=== PATIENT | male | born 1990 | race Two or more races ===

== ENCOUNTER 2017-02-22 20:13 | Emergency (ER) | payer MEDICAID ==
[~2017-02-22] VITALS: Ht 182.9 cm; Wt 97.5 kg
[~2017-02-22 20:13] MED LIST: PEPCID40 MG PO; RISPERDAL0.25 MG PO
[2017-02-22] MEDS ORDERED: LORazepam Inj 2mg/ml 1ml IM ONE (20:30)
[2017-02-22] MEDS ORDERED: Haloperidol 5mg/ml Inj IM ONE (20:30)
[2017-02-22] MEDS ORDERED: DiphenhydrAMINE 50mg/ml Inj IM ONE (20:30)
[2017-02-22 21:00] VITALS: BP 119/72
[2017-02-22 21:02] VITALS: BP 144/78
[2017-02-22] MEDS ORDERED: UNOBMED (21:13)
[2017-02-22 21:24] LABS: EOSINOPHILS % (AUTO) 0.6 % (0.0-3.0); LYMPHOCYTES % (AUTO) 14.2 % (20.0-45.0); MEAN CORPUSCULAR HEMOGLOBIN 31.3 PG (27.0-31.0); MEAN CORPUSCULAR HGB CONC 34.9 G/DL (32.0-36.0); MEAN CORPUSCULAR VOLUME 90 FL (80-99); MEAN PLATELET VOLUME 6.1 FL (6.5-10.1); MONOCYTES % (AUTO) 5.6 % (1.0-10.0); NEUTROPHILS % (AUTO) 78.6 % (45.0-75.0); PLATELET COUNT 283 K/UL (150-450); RED BLOOD COUNT 4.68 M/UL (4.70-6.10); WHITE BLOOD COUNT 16.2 K/UL (4.8-10.8)
[2017-02-22 21:51] LABS: ACETAMINOPHEN < 10 ug/mL (10-30); ALANINE AMINOTRANSFERASE 24 U/L (3-41); ALBUMIN/GLOBULIN RATIO 1.9 (1.0-2.7); ALCOHOL < 10 mg/dL; ANION GAP 12 (5-15); ASPARTATE AMINO TRANSFERASE 24 U/L (5-40); CALCIUM 9.2 mg/dL (8.6-10.2); CARBON DIOXIDE 30 mEQ/L (20-30); CHLORIDE 96 mEQ/L (98-107); GLOMERULAR FILTRATION RATE > 60 mL/min (>60); HEMOLYSIS 4; POTASSIUM 3.7 mEQ/L (3.4-4.9); SODIUM 138 mEQ/L (135-145)
[2017-02-22] MEDS ORDERED: Bacitracin Oint UD TOPIC ONE (22:26)
[2017-02-22 23:08] VITALS: BP 114/75
[2017-02-23] VITALS (9 sets, daily range): BP systolic 102–122; BP diastolic 64–78
[2017-02-23] MEDS ORDERED: DiphenhydrAMINE 50mg/ml Inj IM ONE (07:15)
[2017-02-23] MEDS ORDERED: Haloperidol 5mg/ml Inj IM ONE ×2 (07:15→09:45)
[2017-02-23] MEDS ORDERED: LORazepam Inj 2mg/ml 1ml IM ONE (07:15)
[2017-02-23] MEDS ORDERED: LORazepam Inj 2mg/ml 1ml ONE (07:16)
[2017-02-23] MEDS ORDERED: DiphenhydrAMINE 50mg/ml Inj ONE (07:17)
[2017-02-23] MEDS ORDERED: Haloperidol 5mg/ml Inj ONE (07:17)
--- NOTE | 2017-02-23 07:42 | Emergency Room Report ---
History of Present Illness General Chief Complaint: Behavioral Complaint Source: Patient, EMS Present Illness HPI The patient is a 26-year-old male brought in by EMS for indecent exposure and being extremely agitated and violent. The patient reportedly had prior history of bipolar disorder and had sustained a laceration to his right forearm. The patient was found in his underwear only. Patient was placed on a 5150 hold by police. History markedly limited patient's poor cooperation. Allergies: Coded Allergies: No Known Allergies (Unverified , 12/08/12) UNABLE TO ASSESS (Unverified , 02/22/17) Patient History Past Medical History: see triage record, bipolar Reviewed Nursing Documentation: PMH: Agreed, PSxH: Agreed Nursing Documentation-PMH Past Medical History: No History, Except For Review of Systems All Other Systems: limited - by poor cooperation Physical Exam Vital Signs Date Time Temp Pulse Resp B/P Pulse Ox O2 Delivery O2 Flow Rate FiO2 02/22/17 20:02 98.6 88 24 132/78 98 Room Air Sp02 EP Interpretation: reviewed, normal General Appearance: alert/responsive, no apparent distress, GCS 15, non-toxic Head: atraumatic Eyes: PERRL, lids + conjunctiva normal ENT: hearing intact, no angioedema Neck: supple/symm/no masses, no meningismus Respiratory: effort normal, no wheezing, chest symmetrical Cardiovascular: regular rate, rhythm, no edema Cardiovascular #2: 2+ carotid (R), 2+ carotid (L), 2+ dorsalis pedis (R), 2+ dorsalis pedis (L) Gastrointestinal: non-tender, no mass, non-distended, no rebound/guarding, normal bowel sounds Musculoskeletal: gait & station normal, strength & tone normal, normal ROM, non -tender Neurologic: normal inspection, CN II-XII intact, oriented x3, sensory intact, normal speech Psychiatric: other - agitated, pressured speech, poor insight, impulse control impaired Skin: no rash, well hydrated, other - laceration to left forearm sutured Lymphatic: normal inspection Medical Decision Making Diagnostic Impression: Primary Impression: Psychosis Additional Impressions: Laceration of left forearm Substance abuse ER Course The patient was endorsed to me after laceration repair. The patient had reportedly been placed on a 5150 hold. The patient was noted to be a markedly agitated and had been given medications. Patient was noted to be increasingly agitated this morning. He became assaultive and began spitting at staff. The patient was placed in leather restraints. He was given Haldol Ativan and Benadryl for agitation. Urine drug screen was noted to be positive for amphetamine and marijuana. The patient was seen by Dr. Cotton and was given additional dose of Haldol.The patient was endorsed to pending further disposition. Labs Test 02/22/17 21:13 White Blood Count 16.2 K/UL (4.8-10.8) Red Blood Count 4.68 M/UL (4.70-6.10) Hemoglobin 14.6 G/DL (14.2-18.0) Hematocrit 41.9 % (42.0-52.0) Mean Corpuscular Volume 90 FL (80-99) Mean Corpuscular Hemoglobin 31.3 PG (27.0-31.0) Mean Corpuscular Hemoglobin Concent 34.9 G/DL (32.0-36.0) Red Cell Distribution Width 12.0 % (11.6-14.8) Platelet Count 283 K/UL (150-450) Mean Platelet Volume 6.1 FL (6.5-10.1) Neutrophils (%) (Auto) 78.6 % (45.0-75.0) Lymphocytes (%) (Auto) 14.2 % (20.0-45.0) Monocytes (%) (Auto) 5.6 % (1.0-10.0) Eosinophils (%) (Auto) 0.6 % (0.0-3.0) Basophils (%) (Auto) 1.0 % (0.0-2.0) Sodium Level 138 mEQ/L (135-145) Potassium Level 3.7 mEQ/L (3.4-4.9) Chloride Level 96 mEQ/L (98-107) Carbon Dioxide Level 30 mEQ/L (20-30) Anion Gap 12 (5-15) Blood Urea Nitrogen 18 mg/dL (7-23) Creatinine 1.0 mg/dL (0.7-1.2) Estimat Glomerular Filtration Rate > 60 mL/min (>60) Glucose Level 103 mg/dL (74-106) Calcium Level 9.2 mg/dL (8.6-10.2) Total Bilirubin 0.7 mg/dL (0.0-1.2) Aspartate Amino Transf (AST/SGOT) 24 U/L (5-40) Alanine Aminotransferase (ALT/SGPT) 24 U/L (3-41) Alkaline Phosphatase 62 U/L (40-129) Total Protein 7.0 g/dL (6.6-8.7) Albumin 4.6 g/dL (3.5-5.2) Globulin 2.4 g/dL Albumin/Globulin Ratio 1.9 (1.0-2.7) Salicylates Level < 1 mg/dL (10-30) Urine Opiates Screen Negative (NEGATIVE) Acetaminophen Level < 10 ug/mL (10-30) Urine Barbiturates Screen Negative (NEGATIVE) Phencyclidine (PCP) Screen Negative (NEGATIVE) Urine Amphetamines Screen Positive (NEGATIVE) Urine Benzodiazepines Screen Negative (NEGATIVE) Urine Cocaine Screen Negative (NEGATIVE) Urine Marijuana (THC) Screen Positive (NEGATIVE) Serum Alcohol < 10 mg/dL Last Vital Signs Date Time Temp Pulse Resp B/P Pulse Ox O2 Delivery O2 Flow Rate FiO2 02/23/17 07:03 98.5 62 14 122/74 99 Room Air Status: improved Disposition: HOME, SELF-CARE Condition: Stable Referrals: [facility] (PCP) Linus Avalos Feb 23, 2017 07:42
--- NOTE | 2017-02-23 15:30 | Emergency Room Report ---
History of Present Illness General Chief Complaint: Behavioral Complaint Source: Patient, EMS Present Illness HPI 26-year-old male presents ED. Patient presents with [employer]. Patient was found running in the street in his underwear. Has a laceration to his left forearm. Patient is agitated and combative, unable to provide any additional history. Cannot tell how he sustained a laceration to his arm. [employer] is placed 5150 hold on the patient. No other signs of trauma. No aggravating relieving factors. No other associated symptoms Allergies: Coded Allergies: No Known Allergies (Unverified , 12/08/12) UNABLE TO ASSESS (Unverified , 02/22/17) Patient History Past Medical History: none Past Surgical History: none Pertinent Family History: none Social History: Denies: alcohol use, drug use, smoking Immunizations: UTD Reviewed Nursing Documentation: PMH: Agreed, PSxH: Agreed Nursing Documentation-PMH Past Medical History: No History, Except For Review of Systems All Other Systems: limited Physical Exam Vital Signs Date Time Temp Pulse Resp B/P Pulse Ox O2 Delivery O2 Flow Rate FiO2 02/22/17 20:02 98.6 88 24 132/78 98 Room Air Sp02 EP Interpretation: reviewed, normal General Appearance: no apparent distress, alert, GCS 15, non-toxic, other - disheveled Head: normocephalic Eyes: bilateral eye PERRL, bilateral eye normal inspection ENT: normal ENT inspection Neck: normal inspection Respiratory: chest non-tender, lungs clear, normal breath sounds, speaking full sentences Cardiovascular #1: regular rate, rhythm, no edema Gastrointestinal: normal inspection Rectal: deferred Genitourinary: no CVA tenderness Musculoskeletal: normal inspection Neurologic: other - agitated/combative Psychiatric: other - disoriented/combative Skin: laceration - 4cm laceration to L forearm, subcutaneous fat exposed Lymphatic: normal inspection Procedures Laceration/Wound Repair Laceration/Wound Repair : Consent: Verbal Wound Location: upper extremity - L forearm Wound's Depth, Shape: linear Wound Explored: clean Betadine Prep?: Yes Anesthesia: 1% Lidocaine Wound Debrided: minimal Wound Repaired With: sutures Suture Size/Type: 4:0, proline Layer Closure?: No Sterile Dressing Applied?: Yes Splint Applied?: No Sling Applied?: No Patient Tolerated: Well Complications: None Medical Decision Making Diagnostic Impression: Primary Impression: Psychosis Qualified Codes: F29 - Unspecified psychosis not due to a substance or known physiological condition Additional Impressions: Substance abuse Laceration of left forearm Qualified Codes: S51.812A - Laceration without foreign body of left forearm, initial encounter ER Course Hospital Course 26-year-old male presents to ED for evaluation. found running in traffic Differential diagnoses include: Major depressive disorder, unspecified psychosis , EtOH abuse, drug abuse Clinical course Patient placed on stretcher. On one to one observation. After initial history and physical, patient required sedation Patient given Haldol/Ativan. I ordered labs, U. tox Labs-electrolytes normal, aspirin/Tylenol levels normal, EtOH level normal, U. tox +amphetamines, THC Forearm laceration repaired patient is on 5150 hold by [employer]. Patient is medically cleared and pending psychiatric evaluation. i. I feel this is a highly complex case requiring extensive working including EKG/Rhythm strip, Xray/CT/US, Blood/urine lab work, repeat exams while in ED, and administration of strong opiates/narcotics for pain control, admission to hospital or close patient follow up. Labs Test 02/22/17 21:13 White Blood Count 16.2 K/UL (4.8-10.8) Red Blood Count 4.68 M/UL (4.70-6.10) Hemoglobin 14.6 G/DL (14.2-18.0) Hematocrit 41.9 % (42.0-52.0) Mean Corpuscular Volume 90 FL (80-99) Mean Corpuscular Hemoglobin 31.3 PG (27.0-31.0) Mean Corpuscular Hemoglobin Concent 34.9 G/DL (32.0-36.0) Red Cell Distribution Width 12.0 % (11.6-14.8) Platelet Count 283 K/UL (150-450) Mean Platelet Volume 6.1 FL (6.5-10.1) Neutrophils (%) (Auto) 78.6 % (45.0-75.0) Lymphocytes (%) (Auto) 14.2 % (20.0-45.0) Monocytes (%) (Auto) 5.6 % (1.0-10.0) Eosinophils (%) (Auto) 0.6 % (0.0-3.0) Basophils (%) (Auto) 1.0 % (0.0-2.0) Sodium Level 138 mEQ/L (135-145) Potassium Level 3.7 mEQ/L (3.4-4.9) Chloride Level 96 mEQ/L (98-107) Carbon Dioxide Level 30 mEQ/L (20-30) Anion Gap 12 (5-15) Blood Urea Nitrogen 18 mg/dL (7-23) Creatinine 1.0 mg/dL (0.7-1.2) Estimat Glomerular Filtration Rate > 60 mL/min (>60) Glucose Level 103 mg/dL (74-106) Calcium Level 9.2 mg/dL (8.6-10.2) Total Bilirubin 0.7 mg/dL (0.0-1.2) Aspartate Amino Transf (AST/SGOT) 24 U/L (5-40) Alanine Aminotransferase (ALT/SGPT) 24 U/L (3-41) Alkaline Phosphatase 62 U/L (40-129) Total Protein 7.0 g/dL (6.6-8.7) Albumin 4.6 g/dL (3.5-5.2) Globulin 2.4 g/dL Albumin/Globulin Ratio 1.9 (1.0-2.7) Salicylates Level < 1 mg/dL (10-30) Urine Opiates Screen Negative (NEGATIVE) Acetaminophen Level < 10 ug/mL (10-30) Urine Barbiturates Screen Negative (NEGATIVE) Phencyclidine (PCP) Screen Negative (NEGATIVE) Urine Amphetamines Screen Positive (NEGATIVE) Urine Benzodiazepines Screen Negative (NEGATIVE) Urine Cocaine Screen Negative (NEGATIVE) Urine Marijuana (THC) Screen Positive (NEGATIVE) Serum Alcohol < 10 mg/dL Last Vital Signs Date Time Temp Pulse Resp B/P Pulse Ox O2 Delivery O2 Flow Rate FiO2 02/23/17 12:24 97.6 82 14 102/67 100 Room Air Status: improved Disposition: XFER SHT-TRM HOSP Condition: Serious Referrals: [facility] (PCP) EMERALD RETANA M.D. Feb 23, 2017 15:30
--- NOTE | 2017-02-24 01:45 | Consultation ---
DATE OF CONSULTATION: HISTORY OF PRESENT ILLNESS: This is a 26-year-old [place] male, who was brought in by EMS for injection exposure and being agitated. He has apparently a history of bipolar disorder and possibly psychotic disorder. He also has a history of alcohol and substance abuse disorder. His system is positive for crystal meth. The patient has been put on a 5150 hold and during the evaluation, the patient was calmer, however, he was unfortunately was given Haldol 5 mg earlier in addition to Benadryl and Ativan. He was more logical during the evaluation. He was able to provide history for his family history. He had a psychiatric hospitalization in the past and he has substance use disorder. He uses crystal meth with his friends. His mother has a history of schizophrenia. She lived somewhere in [facility] . His father, who is from mother, is very distant from the patient and would not come to pick him up from the hospital. The patient has a history of noncompliance with medication. He stated that he takes Invega Sustenna every month and he already has taken that injection for the month of February. The patient appears to have been wandering around the street, as his face and hands and forearms are tanned. During the evaluation, the patient was delusional. He feels he is part of the gang even though he stated that he is not making any money. PAST PSYCHIATRIC HISTORY: He has a history of bipolar disorder, which is self reported, has had several psychiatric hospitalizations. PAST MEDICAL HISTORY: Unknown. ALLERGIES: He denies any drug allergies. SUBSTANCE ABUSE HISTORY: Extensive for alcohol, marijuana, crystal meth, and other illicit drug use. MENTAL STATUS EXAMINATION: The patient is alert and oriented times self, place, and situation. He did not have any psychomotor retardation or agitation. His mood is irritable. Affect is constricted and congruent with mood. Thought process was concrete. Thought content, there was no suicidal or homicidal ideations, however, the patient has been aggressive in the emergency room. PLAN: The patient is currently on 5150 hold. He will be given further medication and we will give treatment and reassess. If the patient is calmer, he may be discharged from the ER with a followup plan with his psychiatrist. Otherwise, he will be transferred out to a psychiatric hospital. Katy Cotton M.D. DR: EUGENE JOB#: [id number] CC:
== END 2017-02-23 16:17 | disposition home or self-care (01) ==
LOC: EDBD 20:13 → EMR 20:30
DX: F29 Unspecified psychosis not due to a substance or known physiological condition (principal); S51.812A Laceration without foreign body of left forearm, initial encounter; X58.XXXA Exposure to other specified factors, initial encounter; Y92.89 Other specified places as the place of occurrence of the external cause; F19.10 Other psychoactive substance abuse, uncomplicated; F31.9 Bipolar disorder, unspecified
CPT/HCPCS: 12002; 36415; 80053; 80300; 80329; 85025; 96372; 99285; J1200; J1630

== ENCOUNTER 2017-09-27 13:50 | Emergency (ER) | payer MEDICAID ==
[~2017-09-27] VITALS: Ht 170.2 cm; Wt 77.1 kg
[~2017-09-27 13:50] MED LIST changes: +UNOBMED
[2017-09-27] MEDS ORDERED: LORazepam Inj 2mg/ml 1ml IM ONE ×2 (14:00→21:00)
--- NOTE | 2017-09-27 14:04 | Emergency Room Report ---
History of Present Illness General Chief Complaint: Behavioral Complaint Present Illness HPI 30 yo male patient presents to ER BIB police complaining of erratic behavior. Police report patient was running through the street in between cars. Patient is a poor historian. Patient reports using crystal meth. Patient reports hx of bipolar disorder; does not know medications he's taking; reports not taking medications currently. Denies fever, chest pain, SOB, abdominal pain. Denies thoughts of suicide or hurting others. Patient shouting and yelling nonsensical sayings. Allergies: Coded Allergies: No Known Allergies (Unverified , 09/27/17) Patient History Past Medical History: see triage record Reviewed Nursing Documentation: PMH: Agreed, PSxH: Agreed Nursing Documentation-PMH Past Medical History Deferred: Pt Cognitively Impaired Past Medical History: Deferred Review of Systems All Other Systems: negative except mentioned in HPI Physical Exam Sp02 EP Interpretation: reviewed, normal General Appearance: well appearing, alert, GCS 15, mild distress, other - dirty skin, dirty clothes, patient agitated, shouting and yelling Head: normocephalic, atraumatic Eyes: bilateral eye normal inspection, bilateral eye PERRL ENT: hearing grossly normal, normal pharynx, no angioedema, normal voice, uvula midline, moist mucus membranes Neck: full range of motion Respiratory: lungs clear, normal breath sounds, no rhonchi, no respiratory distress, no accessory muscle use, no wheezing, speaking full sentences Cardiovascular #1: regular rate, rhythm Gastrointestinal: non tender, soft, no mass, non-distended, no guarding, no rebound Neurologic: alert, oriented x3, responsive, motor strength/tone normal, sensory intact Psychiatric: anxious Skin: other - dirty on skin Lymphatic: no adenopathy Medical Decision Making PA Attestation Dr. Avalos is my supervising Physician whom patient management has been discussed with. Diagnostic Impression: Primary Impression: Behavioral disorder Additional Impression: Drug abuse ER Course Pt. presents to the ED BIB ambulance c/o possible drug overdose and erratic behavior. Ddx considered but are not limited to drug use, alcohol use, psychosis. Vital signs: are WNL, pt. is afebrile Ordered labs and medication. CBC, CMP, Urine drug screen, Acetaminophen level, Salicylate level, serum alcohol, Ativan 2 mg. ER COURSE: Patient is extremely agitated. 2 mg Ativan ordered. Patient appears agitated; placed in soft restraints. Consult with Dr. Avalos. Labs positive for marijuana and meth. No elevation in WBC, acetaminophen level, salicylates, or liver enzymes. Patient resting comfortably. Consult Dr. Avalos. Will allow patient to rest. 0845PM Patient yelling and screaming. Ordered Ativan, Haldol and Benadryl. Do not believe patient is suicidal. Patient eloped prior to providing medication. Labs Test 09/27/17 14:29 09/27/17 14:55 White Blood Count 7.5 K/UL (4.8-10.8) Red Blood Count 4.35 M/UL (4.70-6.10) Hemoglobin 13.3 G/DL (14.2-18.0) Hematocrit 38.1 % (42.0-52.0) Mean Corpuscular Volume 88 FL (80-99) Mean Corpuscular Hemoglobin 30.5 PG (27.0-31.0) Mean Corpuscular Hemoglobin Concent 34.8 G/DL (32.0-36.0) Red Cell Distribution Width 12.3 % (11.6-14.8) Platelet Count 301 K/UL (150-450) Mean Platelet Volume 5.3 FL (6.5-10.1) Neutrophils (%) (Auto) 52.7 % (45.0-75.0) Lymphocytes (%) (Auto) 33.7 % (20.0-45.0) Monocytes (%) (Auto) 7.5 % (1.0-10.0) Eosinophils (%) (Auto) 4.5 % (0.0-3.0) Basophils (%) (Auto) 1.5 % (0.0-2.0) Sodium Level 140 MMOL/L (136-145) Potassium Level 3.4 MMOL/L (3.5-5.1) Chloride Level 104 MMOL/L (98-107) Carbon Dioxide Level 32 MMOL/L (21-32) Anion Gap 5 mmol/L (5-15) Blood Urea Nitrogen 19 mg/dL (7-18) Creatinine 1.0 MG/DL (0.55-1.30) Estimat Glomerular Filtration Rate > 60 mL/min (>60) Glucose Level 143 MG/DL (74-106) Calcium Level 9.0 MG/DL (8.5-10.1) Total Bilirubin 0.7 MG/DL (0.2-1.0) Aspartate Amino Transf (AST/SGOT) 26 U/L (15-37) Alanine Aminotransferase (ALT/SGPT) 25 U/L (12-78) Alkaline Phosphatase 66 U/L (46-116) Total Protein 6.7 G/DL (6.4-8.2) Albumin 3.6 G/DL (3.4-5.0) Globulin 3.1 g/dL Albumin/Globulin Ratio 1.2 (1.0-2.7) Salicylates Level 0.5 ug/mL (2.8-20) Acetaminophen Level < 2 MCG/ML (10-30) Serum Alcohol < 3 mg/dL Urine Opiates Screen Negative (NEGATIVE) Urine Barbiturates Screen Negative (NEGATIVE) Phencyclidine (PCP) Screen Negative (NEGATIVE) Urine Amphetamines Screen Positive (NEGATIVE) Urine Benzodiazepines Screen Negative (NEGATIVE) Urine Cocaine Screen Negative (NEGATIVE) Urine Marijuana (THC) Screen Positive (NEGATIVE) Disposition: Hemant Resendiz Sep 27, 2017 14:04
[2017-09-27 15:24] LABS: BASOPHILS % (AUTO) 1.5 % (0.0-2.0); EOSINOPHILS % (AUTO) 4.5 % (0.0-3.0); HEMATOCRIT 38.1 % (42.0-52.0); HEMOGLOBIN 13.3 G/DL (14.2-18.0); LYMPHOCYTES % (AUTO) 33.7 % (20.0-45.0); MEAN CORPUSCULAR VOLUME 88 FL (80-99); MONOCYTES % (AUTO) 7.5 % (1.0-10.0); NEUTROPHILS % (AUTO) 52.7 % (45.0-75.0); PLATELET COUNT 301 K/UL (150-450); RED BLOOD COUNT 4.35 M/UL (4.70-6.10); RED CELL DISTRIBUTION WIDTH 12.3 % (11.6-14.8); WHITE BLOOD COUNT 7.5 K/UL (4.8-10.8)
[2017-09-27 15:56] LABS: ANION GAP 5 mmol/L (5-15); BLOOD UREA NITROGEN 19 mg/dL (7-18); CARBON DIOXIDE 32 MMOL/L (21-32); CHLORIDE 104 MMOL/L (98-107); POTASSIUM 3.4 MMOL/L (3.5-5.1); SODIUM 140 MMOL/L (136-145)
[2017-09-27 15:57] LABS: ALANINE AMINOTRANSFERASE 25 U/L (12-78); ALBUMIN 3.6 G/DL (3.4-5.0); ALBUMIN/GLOBULIN RATIO 1.2 (1.0-2.7); ALKALINE PHOSPHATASE 66 U/L (46-116); ASPARTATE AMINO TRANSFERASE 26 U/L (15-37); BILIRUBIN,TOTAL 0.7 MG/DL (0.2-1.0)
[2017-09-27 18:28] VITALS: BP 119/78
[2017-09-27 21:00] VITALS: BP 0/0
[2017-09-27] MEDS ORDERED: DiphenhydrAMINE 50mg/ml Inj IM ONE (21:00)
[2017-09-27] MEDS ORDERED: Haloperidol 5mg/ml Inj IM ONE (21:00)
== END 2017-09-28 03:56 | disposition left against medical advice (07) ==
LOC: EDBD 13:50 → MERGE 14:10 → EMR 14:10
DX: F15.10 Other stimulant abuse, uncomplicated (principal); F91.9 Conduct disorder, unspecified; F31.9 Bipolar disorder, unspecified
CPT/HCPCS: 36415; 80053; 80307; 80329; 85025; 96372; 99284

== ENCOUNTER 2017-10-01 17:48 | Emergency (ER) | payer MEDICAID ==
[~2017-10-01] VITALS: Ht 175.3 cm; Wt 54.4 kg
--- NOTE | 2017-10-01 18:39 | Emergency Room Report ---
History of Present Illness General Chief Complaint: Behavioral Complaint Source: Patient, EMS Present Illness HPI 26-year-old male, reportedly with psychiatric problems, brought in for agitation , abnormal behavior. EMS and police state that [place] and now weak, lying down, very agitated and speaking nonsense words, curse words, disorganized thoughts Patient is currently speaking very fast, not making any sense, not necessarily endorsing any SI or HI Allergies: Coded Allergies: No Known Allergies (Unverified , 12/08/12) UNABLE TO ASSESS (Unverified , 02/22/17) Patient History Past Medical History: see triage record Past Surgical History: none Pertinent Family History: none Reviewed Nursing Documentation: PMH: Agreed, PSxH: Agreed Nursing Documentation-PMH Past Medical History Deferred: Pt Cognitively Impaired Review of Systems All Other Systems: negative except mentioned in HPI Physical Exam Vital Signs Date Time Temp Pulse Resp B/P (MAP) Pulse Ox O2 Delivery O2 Flow Rate FiO2 10/01/17 17:49 98.4 86 18 106/84 99 Room Air 98.4 Sp02 EP Interpretation: reviewed, normal General Appearance: alert, moderate distress Head: normocephalic, atraumatic Eyes: bilateral eye normal inspection, bilateral eye PERRL, bilateral eye EOMI ENT: normal ENT inspection, normal pharynx, normal voice, moist mucus membranes Neck: normal inspection, full range of motion, supple Respiratory: normal inspection, lungs clear, normal breath sounds, no respiratory distress, no retraction, no wheezing, speaking full sentences, chest symmetrical Cardiovascular #1: normal inspection, regular rate, rhythm, no edema, normal capillary refill Cardiovascular #2: 2+ radial (R), 2+ radial (L) Gastrointestinal: normal inspection, non tender, soft, non-distended, no guarding Genitourinary: no CVA tenderness Musculoskeletal: normal inspection, back normal, normal range of motion, non- tender Neurologic: other - aox1 moving all ext Psychiatric: other - anxious, delusional, no reported si/hi Skin: normal inspection, normal color, no rash, warm/dry, well hydrated, normal turgor Medical Decision Making Diagnostic Impression: Primary Impression: Behavioral change ER Course 26-year-old male with abnormal behavior DDX: Psychiatric illness versus intoxication versus metabolic Plan: Obtain labs, ua, ucx ER course: Patient extremely agitated, required behavioral constraints, sedated with Versed and Haldol Signed out patient to Dr. Avalos -26 yo M behavioral disorder, was very agitated/belligerent -sedated -pending reassessment when awake poss psych eval Please note that this Emergency Department Report was dictated using [employer] fin[employer] technology software, occasionally this can lead to erroneous entry secondary to interpretation by the dictation equipment Last Vital Signs Date Time Temp Pulse Resp B/P (MAP) Pulse Ox O2 Delivery O2 Flow Rate FiO2 10/01/17 17:49 98.4 86 18 106/84 99 Room Air 98.4 Referrals: [facility] (PCP) Shanique Moya M.D. Oct 01, 2017 18:39
[2017-10-01] MEDS: Haloperidol 5mg/ml Inj IM ONE (19:07)
[2017-10-01 19:23] LABS: BASOPHILS % (AUTO) 1.2 % (0.0-2.0); EOSINOPHILS % (AUTO) 2.7 % (0.0-3.0); HEMATOCRIT 41.1 % (42.0-52.0); HEMOGLOBIN 13.9 G/DL (14.2-18.0); LYMPHOCYTES % (AUTO) 32.3 % (20.0-45.0); MEAN CORPUSCULAR VOLUME 88 FL (80-99); MONOCYTES % (AUTO) 6.6 % (1.0-10.0); NEUTROPHILS % (AUTO) 57.2 % (45.0-75.0); PLATELET COUNT 293 K/UL (150-450); RED BLOOD COUNT 4.67 M/UL (4.70-6.10); RED CELL DISTRIBUTION WIDTH 12.3 % (11.6-14.8); WHITE BLOOD COUNT 8.4 K/UL (4.8-10.8)
[2017-10-01 19:30] VITALS: BP 112/78
[2017-10-01 19:38] LABS: ANION GAP 5 mmol/L (5-15); BLOOD UREA NITROGEN 14 mg/dL (7-18); CALCIUM 8.6 MG/DL (8.5-10.1); CARBON DIOXIDE 30 MMOL/L (21-32); CHLORIDE 102 MMOL/L (98-107); CREATININE 0.9 MG/DL (0.55-1.30); POTASSIUM 3.5 MMOL/L (3.5-5.1); SODIUM 137 MMOL/L (136-145)
[2017-10-01 19:42] LABS: ALANINE AMINOTRANSFERASE 24 U/L (12-78); ALBUMIN/GLOBULIN RATIO 1.3 (1.0-2.7); ALKALINE PHOSPHATASE 67 U/L (46-116); ASPARTATE AMINO TRANSFERASE 26 U/L (15-37); BILIRUBIN,TOTAL 0.5 MG/DL (0.2-1.0)
[2017-10-01 21:30] VITALS: BP 110/79
[2017-10-01 21:52] LABS: APPEARANCE,URINE CLEAR; BILIRUBIN, URINE NEGATIVE (NEGATIVE); COLOR,URINE YELLOW; GLUCOSE, URINE (UA) NEGATIVE (NEGATIVE); KETONES,URINE 1+ (NEGATIVE); LEUKOCYTE ESTERASE ,URINE NEGATIVE (NEGATIVE); NITRITE,URINE NEGATIVE (NEGATIVE); PH,URINE 6 (4.5-8.0); PROTEIN,URINE 1+ (NEGATIVE); UROBILINOGEN,URINE 1 MG/DL (0.0-1.0)
[2017-10-01 23:30] VITALS: BP 108/73
[2017-10-02] VITALS (11 sets, daily range): BP systolic 101–120; BP diastolic 50–79
[2017-10-02] MEDS: DiphenhydrAMINE 50mg/ml Inj IM ONE (03:34)
[2017-10-02] MEDS: Haloperidol 5mg/ml Inj IM ONE (03:34)
[2017-10-02] MEDS: LORazepam Inj 2mg/ml 1ml IM ONE (03:34)
--- NOTE | 2017-10-03 22:36 | Consultation ---
History of Present Illness General Date patient seen: Oct 02, 2017 Chief Complaint: Behavioral Complaint Present Illness HPI 26-year-old male, reportedly with psychiatric problems, brought in for agitation , abnormal behavior. the pt was severely psychotic and agitated therefore he was not able to participate in eval Allergies: Coded Allergies: No Known Allergies (Unverified , 12/08/12) UNABLE TO ASSESS (Unverified , 02/22/17) Medication History Scheduled Famotidine (Pepcid), 40 MG PO QHS Risperidone* (Risperdal*), 0.25 MG PO DAILY, (Reported) Miscellaneous Medications Unable to Obtain Medications (Unable To Obtain Meds), (Reported) Patient History History Provided By: Patient, Medical Record, PMD Healthcare decision maker Resuscitation status Advanced Directive on File Past Medical/Surgical History Past Medical/Surgical History: (1) Behavioral change Review of Systems Psychiatric: Reports: prior hx, hallucinations Physical Exam Height (Feet): 5 Height (Inches): 9.00 Weight (Pounds): 120 Assessment/Plan Status: not improved, unchanged Assessment/Plan schizophrenia substance use transfer to Katy Lozano M.D. Oct 03, 2017 22:36
== END 2017-10-02 14:08 ==
LOC: EDBD 17:48 → EMR 18:03
DX: F91.9 Conduct disorder, unspecified (principal)
CPT/HCPCS: 36415; 80053; 80307; 80329; 81003; 85025; 96372; 99284; J1200; J1630; J2250

== ENCOUNTER 2017-10-27 02:31 | Emergency (ER) | payer MEDICAID ==
[~2017-10-27] VITALS: Ht 180.3 cm; Wt 68.0 kg
[2017-10-27] MEDS ORDERED: DiphenhydrAMINE 50mg/ml Inj IM ONE (02:45)
[2017-10-27] MEDS ORDERED: Haloperidol 5mg/ml Inj IM ONE (02:45)
--- NOTE | 2017-10-27 05:07 | Emergency Room Report ---
History of Present Illness General Chief Complaint: Behavioral Complaint Source: Patient, Medical Record, EMS Present Illness HPI This is a 26-year-old male with a history of schizophrenia. He's been in here several times with the same complaint. He presents with chief complaint of bizarre behavior. He was on a park bench near an apartment complex. He was yelling and acting bizarrely. 911 was called. He was brought in in restraints. Patient has a history of schizophrenia and also on drugs mostly metamphetamine. Rest of history is through previous visits. Allergies: Coded Allergies: UNABLE TO ASSESS (Unverified , 02/22/17) Patient History Past Medical History: see triage record, old chart reviewed, schizophrenia Past Surgical History: none Family History: none Social History: drug use Immunizations: other Reviewed Nursing Documentation: PMH: Agreed; PSxH: Agreed Nursing Documentation-PMH Past Medical History Deferred: Pt Cognitively Impaired Review of Systems All Other Systems: limited - not cooperative Physical Exam Vital Signs Date Time Temp Pulse Resp B/P (MAP) Pulse Ox O2 Delivery O2 Flow Rate FiO2 10/27/17 02:47 97.4 68 16 115/68 99 Room Air 97.3 vitals normal Sp02 EP Interpretation: reviewed, normal General Appearance: alert/responsive, no apparent distress, non-toxic Head: normocephalic, atraumatic Eyes: PERRL, EOMI ENT: oropharynx normal Neck: supple/symm/no masses Respiratory: effort normal, no rhonchi, no wheezing Cardiovascular: no murmur, gallop, rub Gastrointestinal: non-tender, no mass, non-distended, no rebound/guarding, normal bowel sounds Musculoskeletal: strength & tone normal Neurologic: sensory intact, motor strength/tone normal Psychiatric: other - agitated. Yelling and spitting. Skin: no rash, normal palpation Medical Decision Making Diagnostic Impression: Primary Impression: Psychosis Qualified Codes: F23 - Brief psychotic disorder Additional Impression: Methamphetamine abuse ER Course Patient presents with acute psychosis, worsen by drug abuse. He was given Haldol and Benadryl. He slept through the night. Now calm. Denies suicidal thought homicidal thought now. Said he felt better. We'll discharge home. This patient is a chronic risk of self injury due to poor impulse control, limited coping skills, and judgment intermittently impaired by intoxication. I believe that the available clinical evidence to suggest that these characteristics derived primarily from personality disorder and are likely very stable over time. Hospitalization would likely attenuate risk of self-harm only during group home period, without lasting risk reduction. Serious self-harm , while possible, would likely be inadvertent, and because of impulsivity, and foreseeable. For these reasons, I do not believe hospitalization would provide meaningful reduction in risk of self-harm. Last Vital Signs Date Time Temp Pulse Resp B/P (MAP) Pulse Ox O2 Delivery O2 Flow Rate FiO2 10/27/17 02:47 97.4 68 16 115/68 99 Room Air 97.3 Status: improved Disposition: HOME, SELF-CARE Condition: Stable Referrals: [facility] (PCP) Patient Instructions: Self-Destructive Behavior Additional Instructions: Stop using drugs. Take your medication. Go to mental health within a week. Return if worse. ACE MARTINEZ M.D. Oct 27, 2017 05:07
[2017-10-27 07:45] VITALS: BP 121/75
== END 2017-10-27 07:45 | disposition home or self-care (01) ==
LOC: EDUNIT# 02:31 → EDBD 02:31 → EMR 02:45
DX: F23 Brief psychotic disorder (principal); F15.10 Other stimulant abuse, uncomplicated; F20.9 Schizophrenia, unspecified
CPT/HCPCS: 96372; 99283; J1200; J1630

== ENCOUNTER 2018-08-20 00:25 | Emergency (ER) | payer MEDICAID ==
[2018-08-20] VITALS (9 sets, daily range): BP systolic 112–140; BP diastolic 54–100
[~2018-08-20] VITALS: Ht 182.9 cm; Wt 74.8 kg
[2018-08-20] MEDS ORDERED: DiphenhydrAMINE 50mg/ml Inj ONE (00:37)
[2018-08-20] MEDS ORDERED: LORazepam Inj 2mg/ml 1ml ONE (00:37)
[2018-08-20] MEDS ORDERED: Haloperidol 5mg/ml Inj ONE (00:38)
--- NOTE | 2018-08-20 00:43 | Emergency Room Report ---
History of Present Illness General Chief Complaint: Behavioral Complaint Source: Patient, Medical Record, EMS Present Illness HPI Is a 27-year-old male with a history of schizophrenia methamphetamine abuse. Is brought in by police is a 5150. A restaurant employee called 911 because patient was combative and refused to leave the restaurant. When police arrived , patient became more agitated and was running into the street. He was not cooperative and yelling. He had to be restrained in brought here for evaluation. He will be placed on a 5150. He's been here several times for this similar complaints. He had been positive for methamphetamine in the past. Allergies: Coded Allergies: UNABLE TO ASSESS (Unverified , 02/22/17) Patient History Past Medical History: see triage record, old chart reviewed, schizophrenia Past Surgical History: none Family History: none Social History: drug use Immunizations: other Reviewed Nursing Documentation: PMH: Agreed; PSxH: Agreed Nursing Documentation-PMH Past Medical History: No Stated History Review of Systems ENT: Denies: sore throat Cardiovascular: Denies: chest pain, palpitations Gastrointestinal/Abdominal: Denies: nausea, vomiting, diarrhea Musculoskeletal: Denies: back problems Skin: Denies: rash Neurological: Denies: BARAJAS, seizures All Other Systems: negative except mentioned in HPI Physical Exam Vital Signs Date Time Temp Pulse Resp B/P (MAP) Pulse Ox O2 Delivery O2 Flow Rate FiO2 08/20/18 00:26 98.1 77 20 140/100 98 Room Air vitals unremarkable Sp02 EP Interpretation: reviewed, normal General Appearance: alert/responsive, no apparent distress, non-toxic, other - Agitated, combative Head: normocephalic, atraumatic Eyes: PERRL, EOMI ENT: oropharynx normal Neck: supple/symm/no masses Respiratory: effort normal, no rhonchi, no wheezing Cardiovascular: no murmur, gallop, rub Gastrointestinal: non-tender, no mass, non-distended, no rebound/guarding, normal bowel sounds Musculoskeletal: gait & station normal Neurologic: oriented x3, sensory intact, motor strength/tone normal Psychiatric: other - Agitated and combative Skin: no rash, normal palpation Procedures Critical Care Time Critical Care Time Critical care is mandated in this patient who presented with acute psychosis with coughing sedation. Patient require my urgent intervention to attenuate the risks of danger to self and others. Critical care time is 35 minutes excluding any reportable procedure. Critical care time included evaluation, multiple reevaluation, looking at old charts, interpreting laboratory and diagnostic data, discussing case with patient and family and consultants, and charting. Medical Decision Making Diagnostic Impression: Primary Impression: Psychosis Qualified Codes: F23 - Brief psychotic disorder Additional Impressions: Methamphetamine abuse Schizophrenia, acute ER Course Patient presents with acute psychosis and agitation. He is calm after Ativan, Haldol and Benadryl. Labs unremarkable. Urine drug screen positive for marijuana and methamphetamine. Patient is medically clear for psychiatric evaluation. Laboratory Tests Test 08/20/18 00:46 White Blood Count 10.8 K/UL (4.8-10.8) Red Blood Count 5.06 M/UL (4.70-6.10) Hemoglobin 15.0 G/DL (14.2-18.0) Hematocrit 43.9 % (42.0-52.0) Mean Corpuscular Volume 87 FL (80-99) Mean Corpuscular Hemoglobin 29.7 PG (27.0-31.0) Mean Corpuscular Hemoglobin Concent 34.3 G/DL (32.0-36.0) Red Cell Distribution Width 12.6 % (11.6-14.8) Platelet Count 355 K/UL (150-450) Mean Platelet Volume 5.3 FL (6.5-10.1) L Neutrophils (%) (Auto) 65.7 % (45.0-75.0) Lymphocytes (%) (Auto) 22.6 % (20.0-45.0) Monocytes (%) (Auto) 7.9 % (1.0-10.0) Eosinophils (%) (Auto) 3.0 % (0.0-3.0) Basophils (%) (Auto) 0.9 % (0.0-2.0) Urine Color Yellow Urine Appearance Clear Urine pH 5 (4.5-8.0) Urine Specific [place] 1.025 (1.005-1.035) Urine Protein 1+ (NEGATIVE) H Urine Glucose (UA) Negative (NEGATIVE) Urine Ketones 1+ (NEGATIVE) H Urine Blood 1+ (NEGATIVE) H Urine Nitrite Negative (NEGATIVE) Urine Bilirubin Negative (NEGATIVE) Urine Urobilinogen 1 MG/DL (0.0-1.0) H Urine Leukocyte Esterase 1+ (NEGATIVE) H Urine RBC 0-2 /HPF (0 - 0) H Urine WBC 0-2 /HPF (0 - 0) Urine Squamous Epithelial Cells None /LPF (NONE/OCC) Urine Bacteria None /HPF (NONE) Sodium Level 144 MMOL/L (136-145) Potassium Level 4.1 MMOL/L (3.5-5.1) Chloride Level 106 MMOL/L (98-107) Carbon Dioxide Level 29 MMOL/L (21-32) Anion Gap 9 mmol/L (5-15) Blood Urea Nitrogen 18 mg/dL (7-18) Creatinine 1.1 MG/DL (0.55-1.30) Estimat Glomerular Filtration Rate > 60 mL/min (>60) Glucose Level 134 MG/DL (74-106) H Calcium Level 9.0 MG/DL (8.5-10.1) Total Bilirubin 0.4 MG/DL (0.2-1.0) Aspartate Amino Transf (AST/SGOT) 24 U/L (15-37) Alanine Aminotransferase (ALT/SGPT) 28 U/L (12-78) Alkaline Phosphatase 86 U/L (46-116) Total Protein 6.8 G/DL (6.4-8.2) Albumin 3.8 G/DL (3.4-5.0) Globulin 3.0 g/dL Albumin/Globulin Ratio 1.3 (1.0-2.7) Salicylates Level 1.0 ug/mL (2.8-20) L Urine Opiates Screen Negative (NEGATIVE) Acetaminophen Level < 2 MCG/ML (10-30) L Urine Barbiturates Screen Negative (NEGATIVE) Phencyclidine (PCP) Screen Negative (NEGATIVE) Urine Amphetamines Screen Positive (NEGATIVE) H Urine Benzodiazepines Screen Negative (NEGATIVE) Urine Cocaine Screen Negative (NEGATIVE) Urine Marijuana (THC) Screen Positive (NEGATIVE) H Serum Alcohol < 3 mg/dL Lab Results Impression labs unremarkable Last Vital Signs Date Time Temp Pulse Resp B/P (MAP) Pulse Ox O2 Delivery O2 Flow Rate FiO2 08/20/18 00:26 98.1 77 20 140/100 98 Room Air Status: improved Disposition: XFER TO PSYCH HOSP/UNIT Condition: Stable Krystian Collazo MD Aug 20, 2018 00:43
[2018-08-20] MEDS ORDERED: DiphenhydrAMINE 50mg/ml Inj IM ONE (00:45)
[2018-08-20] MEDS ORDERED: LORazepam Inj 2mg/ml 1ml IM ONE (00:45)
[2018-08-20] MEDS ORDERED: Haloperidol 5mg/ml Inj IM ONE (00:45)
[2018-08-20 00:53] LABS: BASOPHILS % (AUTO) 0.9 % (0.0-2.0); HEMATOCRIT 43.9 % (42.0-52.0); LYMPHOCYTES % (AUTO) 22.6 % (20.0-45.0); MEAN CORPUSCULAR VOLUME 87 FL (80-99); MONOCYTES % (AUTO) 7.9 % (1.0-10.0); NEUTROPHILS % (AUTO) 65.7 % (45.0-75.0); PLATELET COUNT 355 K/UL (150-450); RED BLOOD COUNT 5.06 M/UL (4.70-6.10); RED CELL DISTRIBUTION WIDTH 12.6 % (11.6-14.8); WHITE BLOOD COUNT 10.8 K/UL (4.8-10.8)
[2018-08-20 00:54] LABS: APPEARANCE,URINE CLEAR; BILIRUBIN, URINE NEGATIVE (NEGATIVE); GLUCOSE, URINE (UA) NEGATIVE (NEGATIVE); KETONES,URINE 1+ (NEGATIVE); LEUKOCYTE ESTERASE ,URINE 1+ (NEGATIVE); NITRITE,URINE NEGATIVE (NEGATIVE); PH,URINE 5 (4.5-8.0); PROTEIN,URINE 1+ (NEGATIVE); UROBILINOGEN,URINE 1 MG/DL (0.0-1.0)
[2018-08-20 01:03] LABS: ANION GAP 9 mmol/L (5-15); BLOOD UREA NITROGEN 18 mg/dL (7-18); CARBON DIOXIDE 29 MMOL/L (21-32); CHLORIDE 106 MMOL/L (98-107); CREATININE 1.1 MG/DL (0.55-1.30); POTASSIUM 4.1 MMOL/L (3.5-5.1); SODIUM 144 MMOL/L (136-145)
[2018-08-20 01:08] LABS: ALANINE AMINOTRANSFERASE 28 U/L (12-78); ALBUMIN 3.8 G/DL (3.4-5.0); ALBUMIN/GLOBULIN RATIO 1.3 (1.0-2.7); ALKALINE PHOSPHATASE 86 U/L (46-116); ASPARTATE AMINO TRANSFERASE 24 U/L (15-37); BILIRUBIN,TOTAL 0.4 MG/DL (0.2-1.0)
[2018-08-20 01:19] LABS: COLOR,URINE YELLOW
== END 2018-08-20 12:53 ==
LOC: EDBD 00:25 → EDUNIT# 00:25 → EMR 01:04
DX: F23 Brief psychotic disorder (principal); F15.10 Other stimulant abuse, uncomplicated; R45.1 Restlessness and agitation
CPT/HCPCS: 36415; 80053; 80307; 80329; 81003; 85025; 96360; 96372; 99291; J1200; J1630; 96361

== ENCOUNTER 2018-10-14 16:10 | Emergency (ER) | payer MEDICAID ==
[~2018-10-14] VITALS: Ht 182.9 cm; Wt 70.3 kg
--- NOTE | 2018-10-14 16:15 | NUR ---
ED Nurse Note: Patient brought in by ambulance due to bizarre behavior in the street. bystanders called [employer] for patient hitting on cars. Patient is not in custody. patient is not on hold patient is alert and awake x3, patient is aware of what is going on.
[2018-10-14] MEDS ORDERED: LORazepam Inj 2mg/ml 1ml IV ONE (16:30)
--- NOTE | 2018-10-14 16:45 | Emergency Room Report ---
History of Present Illness General Chief Complaint: Behavioral Complaint Source: Patient, EMS (Hemant Harris) Present Illness HPI 27-year-old male patient presents the ER brought in by police and ambulance for behavioral disorder. EMS reports that patient was running around the streets and being on cars. Patient is not on a 5150 hold. Patient is cooperative at this time answering questions. Denies chest pain, shortness of breath abdominal pain. Denies acute complaints. Reports history of bipolar disorder, states that he has taken medication before but does not member the names of medication. States that he was previously at [facility] for psychiatric holds. Denies history of drug use, states he has done meth in the past. Denies thoughts of hurting himself or others. (Hemant Harris) Allergies: Coded Allergies: No Known Allergies (Unverified , 10/14/18) Patient History Past Medical History: see triage record Reviewed Nursing Documentation: PMH: Agreed; PSxH: Agreed (Hemant Harris) Nursing Documentation-PMH Past Medical History: No History, Except For History Of Psychiatric Problem: Yes - drug abuse, bipolar (Hemant Harris) Review of Systems All Other Systems: negative except mentioned in HPI (Hemant Harris) Physical Exam Vital Signs Date Time Temp Pulse Resp B/P (MAP) Pulse Ox O2 Delivery O2 Flow Rate FiO2 10/14/18 16:11 98.1 88 18 114/59 98 Room Air Sp02 EP Interpretation: reviewed, normal General Appearance: well appearing, no apparent distress, alert, GCS 15, non- toxic Head: normocephalic, atraumatic Eyes: bilateral eye normal inspection, bilateral eye PERRL ENT: hearing grossly normal, normal pharynx, no angioedema, normal voice, uvula midline, moist mucus membranes Neck: full range of motion, no meningismus, no bony tend Respiratory: lungs clear, normal breath sounds, no rhonchi, no respiratory distress, no accessory muscle use, no wheezing, speaking full sentences Cardiovascular #1: regular rate, rhythm, no edema Musculoskeletal: back normal, digits/nails normal, gait/station normal, normal range of motion, non-tender Neurologic: alert, oriented x3, responsive, motor strength/tone normal, sensory intact Psychiatric: mood/affect normal (Hemant Harris) Medical Decision Making PA Attestation Dr. Higgins is my supervising Physician whom patient management has been discussed with. (Hemant Harris) Diagnostic Impression: Primary Impression: Behavioral disorder Additional Impressions: Methamphetamine abuse Psychosis Qualified Codes: F23 - Brief psychotic disorder ER Course Pt. presents to the ED c/o brought in by ambulance for behavioral disorder. Ddx considered but are not limited to anxiety, depression, drug use, alcohol use , behavioral disorder. Vital signs: are WNL, pt. is afebrile Ordered labs, urine drug screen, serum alcohol. ER COURSE: Provide with Ativan and Risperdal for his symptoms. CBC and CMP unremarkable, no elevation WBCs or LFTs Lipase within normal limits Urine drug screen positive for marijuana and amphetamines, consistent with previous visits, will allow patient to rest, provide with IV fluids Acetaminophen and salicylates not elevated, serum alcohol levels within normal limits Patient resting comfortably no acute distress. Patient is medically cleared. Patient will be reassessed when awake. Denies SI/HI. Patient signed out to Dr. Horton. - Please note that this Emergency Department Report was dictated using [employer] consultant technology software, occasionally this can lead to erroneous entry secondary to interpretation by the dictation equipment. [facility] Test 10/14/18 16:45 White Blood Count 7.9 K/UL (4.8-10.8) Red Blood Count 4.58 M/UL (4.70-6.10) Hemoglobin 12.9 G/DL (14.2-18.0) Hematocrit 39.8 % (42.0-52.0) Mean Corpuscular Volume 87 FL (80-99) Mean Corpuscular Hemoglobin 28.2 PG (27.0-31.0) Mean Corpuscular Hemoglobin Concent 32.5 G/DL (32.0-36.0) Red Cell Distribution Width 13.3 % (11.6-14.8) Platelet Count 285 K/UL (150-450) Mean Platelet Volume 5.1 FL (6.5-10.1) Neutrophils (%) (Auto) 52.9 % (45.0-75.0) Lymphocytes (%) (Auto) 25.1 % (20.0-45.0) Monocytes (%) (Auto) 11.1 % (1.0-10.0) Eosinophils (%) (Auto) 9.2 % (0.0-3.0) Basophils (%) (Auto) 1.6 % (0.0-2.0) Sodium Level 140 MMOL/L (136-145) Potassium Level 4.2 MMOL/L (3.5-5.1) Chloride Level 102 MMOL/L (98-107) Carbon Dioxide Level 27 MMOL/L (21-32) Anion Gap 11 mmol/L (5-15) Blood Urea Nitrogen 14 mg/dL (7-18) Creatinine 0.8 MG/DL (0.55-1.30) Estimat Glomerular Filtration Rate > 60 mL/min (>60) Glucose Level 59 MG/DL (74-106) Calcium Level 8.9 MG/DL (8.5-10.1) Total Bilirubin 0.3 MG/DL (0.2-1.0) Aspartate Amino Transf (AST/SGOT) 18 U/L (15-37) Alanine Aminotransferase (ALT/SGPT) 22 U/L (12-78) Alkaline Phosphatase 90 U/L (46-116) Total Protein 6.9 G/DL (6.4-8.2) Albumin 3.6 G/DL (3.4-5.0) Globulin 3.3 g/dL Albumin/Globulin Ratio 1.1 (1.0-2.7) Salicylates Level 0.8 ug/mL (2.8-20) Urine Opiates Screen Negative (NEGATIVE) Acetaminophen Level < 2 MCG/ML (10-30) Urine Barbiturates Screen Negative (NEGATIVE) Phencyclidine (PCP) Screen Negative (NEGATIVE) Urine Amphetamines Screen Positive (NEGATIVE) Urine Benzodiazepines Screen Negative (NEGATIVE) Urine Cocaine Screen Negative (NEGATIVE) Urine Marijuana (THC) Screen Positive (NEGATIVE) Serum Alcohol < 3 mg/dL (Hemant Harris.A.) ER Course Patient signout to me. He slept for several hours. He is now awake and walking around without a problem. No longer suicidal or homicidal. No acute psychosis. He does not want psychiatric evaluation. No criteria for 5150. He wants to leave. This patient is a chronic risk of self injury due to poor impulse control, limited coping skills, and judgment intermittently impaired by intoxication. I believe that the available clinical evidence to suggest that these characteristics derived primarily from personality disorder and are likely very stable over time. Hospitalization would likely attenuate risk of self-harm only during long-term period, without lasting risk reduction. Serious self-harm , while possible, would likely be inadvertent, and because of impulsivity, and foreseeable. For these reasons, I do not believe hospitalization would provide meaningful reduction in risk of self-harm. (Krystian Collazo MD) Last Vital Signs Date Time Temp Pulse Resp B/P (MAP) Pulse Ox O2 Delivery O2 Flow Rate FiO2 10/14/18 16:11 98.1 88 18 114/59 98 Room Air (Hemant Harris) Status: improved (Krystian Collazo MD) Disposition: HOME, SELF-CARE Condition: Stable [facility]errals: [facility] ([facility]P) Patient Instructions: Self-Destructive Behavior Additional Instructions: Stop using drugs. Follow-up with your doctor within a week. Return if worse. Hemant Harris Oct 14, 2018 16:45 Krystian Collazo MD Oct 15, 2018 02:55
--- NOTE | 2018-10-14 16:53 | NUR ---
ED Nurse Note: blood/ urine sent down
[2018-10-14 16:58] VITALS: BP 111/62
[2018-10-14 17:05] LABS: BASOPHILS % (AUTO) 1.6 % (0.0-2.0); EOSINOPHILS % (AUTO) 9.2 % (0.0-3.0); HEMATOCRIT 39.8 % (42.0-52.0); HEMOGLOBIN 12.9 G/DL (14.2-18.0); LYMPHOCYTES % (AUTO) 25.1 % (20.0-45.0); MEAN CORPUSCULAR VOLUME 87 FL (80-99); MONOCYTES % (AUTO) 11.1 % (1.0-10.0); NEUTROPHILS % (AUTO) 52.9 % (45.0-75.0); PLATELET COUNT 285 K/UL (150-450); RED BLOOD COUNT 4.58 M/UL (4.70-6.10); RED CELL DISTRIBUTION WIDTH 13.3 % (11.6-14.8); WHITE BLOOD COUNT 7.9 K/UL (4.8-10.8)
[2018-10-14 17:18] LABS: ANION GAP 11 mmol/L (5-15); BLOOD UREA NITROGEN 14 mg/dL (7-18); CALCIUM 8.9 MG/DL (8.5-10.1); CARBON DIOXIDE 27 MMOL/L (21-32); CHLORIDE 102 MMOL/L (98-107); CREATININE 0.8 MG/DL (0.55-1.30); POTASSIUM 4.2 MMOL/L (3.5-5.1); SODIUM 140 MMOL/L (136-145)
[2018-10-14 17:32] LABS: ALANINE AMINOTRANSFERASE 22 U/L (12-78); ALBUMIN 3.6 G/DL (3.4-5.0); ALBUMIN/GLOBULIN RATIO 1.1 (1.0-2.7); ALKALINE PHOSPHATASE 90 U/L (46-116); ASPARTATE AMINO TRANSFERASE 18 U/L (15-37); BILIRUBIN,TOTAL 0.3 MG/DL (0.2-1.0)
--- NOTE | 2018-10-14 18:00 | NUR ---
ED Nurse Note: patient's belonging's placed in locker #3
--- NOTE | 2018-10-14 19:17 | NUR ---
HAND-OFF: Report given to Joy Walsh RN.
--- NOTE | 2018-10-14 20:47 | NUR ---
ED Nurse Note: Patient is sleeping no s/s of acute distress, chest rise and fall symmetric.
--- NOTE | 2018-10-14 21:50 | NUR ---
ED Nurse Note: Patient is still resting, test case developer unable to wake patient, will consult with patient we he wakes.
--- NOTE | 2018-10-14 22:51 | NUR ---
ED Nurse Note: Patient is sleeping.
--- NOTE | 2018-10-14 23:59 | NUR ---
ED Nurse Note: Patient sleeping comfortably.
--- NOTE | 2018-10-15 01:30 | NUR ---
ED Nurse Note: Patient sleeping with no s/s of acute distress.
--- NOTE | 2018-10-15 02:42 | NUR ---
ED Nurse Note: Patient was able to ambulate to restroom.
--- NOTE | 2018-10-15 03:19 | NUR ---
ED Nurse Note: Patient currently sleeping again.
[2018-10-15 06:20] VITALS: BP 111/62
--- NOTE | 2018-10-15 06:20 | NUR ---
ED Nurse Note: Patient cleared for discharge per ERMD. Patient ID band removed patient IV removed. Patient had to be escorted out by security.
== END 2018-10-15 06:20 | disposition home or self-care (01) ==
LOC: EDBD 16:10 → EMR 16:31
DX: F91.9 Conduct disorder, unspecified (principal); F15.10 Other stimulant abuse, uncomplicated; F29 Unspecified psychosis not due to a substance or known physiological condition; F31.9 Bipolar disorder, unspecified
CPT/HCPCS: 36415; 80053; 80307; 80329; 85025; 96374; 99284